=== PATIENT | male | born 1955 | race African-American/Black ===

== ENCOUNTER 2024-03-17 14:17 | Emergency (ER) | payer MEDICARE, SELFPAY ==
[2024-03-17 14:20] VITALS: BP 156/93
--- NOTE | 2024-03-17 14:57 | ED.GENMED ---
History of Present Illness
General
Chief Complaint: Musculo-Skeletal Complaint
Time Seen by Provider: 03/17/24 14:34
Travel History
Have you had any contact with someone who has COVID-19?: No
Do you have any symptoms of coronavirus? Fever > 100 degrees, chills, cough, shortness of breath, sore throat, loss of taste or smell, muscle aches, or headache?: No
History of Present Illness
History of Present Illness:
69 yo male w/ hx of HTN and gout presents to the Emergency Department for evaluation of non traumatic R knee swelling x 1 week. Saw his PCP and was given celecoxib, however swelling persists. Minimal pain at rest but severe pain with ambulation. No
fevers, chills, night sweats, or weight changes. Does not feel like typical gout. Denies outdoor exposures or tick bites.
Past History
Past History
ED Past Medical History: HTN
ED Past Surgical History: None
Social History
Tobacco: Non-smoker
Alcohol: Occasional
Personal: Partner
Living: alone
Employment: Employed (human resources)
Family History
Family History: Hypertension
Review of Systems
Review of Systems
Allergies reviewed?: Yes
All Other Systems: ROS reviewed and negative except as documented in HPI and ROS
Phy Exam
Physical Exam
Physical Exam:
GEN: Well appearing, NAD, WDWN
HEENT: Oral mucosa moist, no scleral icterus
Cardiac: Regular rate
Lung: No respiratory distress, no tachypnea
MSK: Large R knee effusion. Mild pain w/ PROM. No crepitus or erythema, no warmth
Skin: Good color, no pallor or jaundice, no rashes
Neuro: AO x3, moves all extremities freely
Psych: Calm, cooperative
Course
Orders/Labs/Results
Orders:
Orders
03/17/24 15:07
Body Fluid Cell Count Urgent
What is the Body Fluid: joint
Date Specimen was Collected: 03/17/24
Time Specimen was Collected: 14:57
Comment: with DIFF
Body Fluid Crystals Urgent
What is the Body Fluid: joint
Date Specimen was Collected: 03/17/24
Time Specimen was Collected: 14:57
Fluid Culture with Gram Stain Urgent
ESTELA Source: Joint Fluid
Specimen Description:
Date Specimen was Collected: 03/17/24
Time Specimen was Collected: 14:57
Vital Signs
Initial and Last Documented VS:
Initial Vital Signs
Temp Pulse Resp BP Pulse Ox
98.9 F 81 20 156/93 97
03/17/24 14:20 03/17/24 14:20 03/17/24 14:20 03/17/24 14:20 03/17/24 14:20
Last Documented Vital Signs
Temp Pulse Resp BP Pulse Ox
98.9 F 81 20 156/93 97
03/17/24 14:20 03/17/24 14:20 03/17/24 14:20 03/17/24 14:20 03/17/24 14:20
Procedures
Incision/Drainage/Joint Aspiration
R knee:
Anethesia: 1% Lidocaine
Preparation: cleaned with Betadine
Type of procedure: aspiration
Nature of site: other (knee effusion)
How much fluid was obtained?: number in mls (65cc)
Fluid description: straw colored
Treatment: bandaid applied
MDM/Problems Addressed
MDM/Problems Addressed:
Large amount of straw colored fluid aspirated from the R knee, synovial fluid analysis reassuring against infectious etiology, negative for gout. Low WBC reassuring against Lyme. Likely inflammatory. Recommend continued NSAIDs and Ortho f/u
*Critical Care Note
Total Time (30-74mins, 75-104mins- exclusive of procedures): Not Applicable
ED Attending Note
-
Portions of this chart may have been created with voice recognition software.� Occasional wrong word or��sound alike� substitutions may have occurred due to the inherent limitations of voice recognition software.
Discharge Plan
Departure
Patient Disposition: Home (Routine Discharge)
Date of Disposition: 03/17/24
Time of Disposition: 15:43
Patient with high blood pressure during this ER visit?: No
Discharge Problem:
Effusion of right knee
Instructions: Swollen Joints (DC)
Prescriptions:
No Action
amlodipine 10 MG tablet
10 mg PO DAILY
labetalol 100 MG tablet
100 mg PO BID
lisinopril [Zestril] 40 MG tablet
40 mg PO DAILY
hydrochlorothiazide 12.5 MG tablet
12.5 mg PO Q48H
Referrals:
Darin Recinos MD [Family Provider] -
Primo Vale MD [Active] -
Activity Restrictions/Additional Instructions:
The knee fluid shows no evidence for infection or gout. Highly unlikely that this represents Lyme disease based on the lab findings
This is likely inflammatory fluid and hopefully will improve with celebrex and the drainage procedure
Please follow up with Orthopedics if fluid re-accumulates as you may need steroid injections
Remove the NEERAJ wrap tonight before sleeping
Interventions
Interventions:
*ED COVID-19 Vaccine History Last Done: 03/17/24 14:20
ED-Musculoskeletal Assessment Last Done: 03/17/24 15:43
Discharge Date and Time
Print Language: KHMER
[2024-03-17 15:28] LABS: Body Fluid WBC 3777 /CUMM
[2024-03-17 15:29] LABS: Body Fluid Polymorphonuclear 84.1 %
[2024-03-17 15:31] LABS: Body Fluid Mononuclear 15.9 %
[2024-03-17 15:32] LABS: Body Fluid Second Tech EYM
== END 2024-03-17 16:13 | disposition home or self-care (01) ==
LOC: EMR 14:17
PROVIDERS: Physician Assistant; EMERGENCY PHYSICIAN Emergency Medicine; FAMILY PHYSICIAN Internal Medicine
DX: M25.461 Effusion, right knee (principal); I10 Essential (primary) hypertension
CPT/HCPCS: 99284; 20610; 87015; 87070; 87205; 89051; 89060